=== PATIENT | male | born 1975 | race Caucasian/White ===

== ENCOUNTER → 2016-10-06 | Outpatient (REF) ==
--- NOTE | 2016-10-06 10:44 | DI ---
EXAM: Chest two views HISTORY: [facility] annual screening COMPARISON: 10/24/2014 TECHNIQUE: Two views of the chest were performed FINDINGS: The lungs are clear. There is no pleural effusion or pneumothorax. The heart is normal in size. The mediastinal contour is normal. There are no acute abnormalities of the bones. IMPRESSION: No acute cardiopulmonary process.
== END ==
LOC: RAD 09:39
DX: Z02.89 Encounter for other administrative examinations (principal)